=== PATIENT | male | born 1980 | race Caucasian/White ===

== ENCOUNTER 2017-02-04 21:21 | Emergency (ER) | payer OTHER ==
[~2017-02-04] VITALS: Ht 172.7 cm; Wt 125.2 kg
[2017-02-04 21:26] VITALS: TEMP 36.8; Ht 172.7 cm; Wt 125.2 kg
[2017-02-04] MEDS ORDERED: KETOROLAC TROMETHAMINE 30 MG/ML VIAL IV STA (22:35)
--- NOTE | 2017-02-04 22:35 | EMERGENCY ROOM VISIT NOTE ---
History Report prepared by Alexaibfatemeh: Nain Amado Under the Supervision of: Dr. Doug Rg D.O. First contact with patient: 22:29 Chief Complaint: CHEST PAIN Stated Complaint: CHEST PAINS Nursing Triage Summary: pt c/o left sided cp started around 1300 while he just finished eating History of Present Illness The patient is a 36 year old male who presents to the Emergency Room with complaints of intermittent left-sided chest pain that started around 1300 today. The pain is sharp in nature and usually lasts a few seconds. He has the pain currently. The pain was radiating towards the back before but is not now. He has never had pain like this before. He denies dizziness, lightheadedness, palpitations, or shortness of breath. He denies any recent injury or strenuous activity. Per family, the patient looks okay. He has a family history of heart disease. Source of History: patient, family Onset: 1300 today Position: chest (left) Quality: sharp Timing: intermittent Associated Symptoms: No SOB Review of Systems See HPI for pertinent positives and negatives. A total of ten systems were reviewed and were otherwise negative. Past Medical & Surgical Medical Problems: (1) Insomnia Family History FH: heart disease Social History Smoking Status: Current Every Day Smoker Marital Status: Housing Status: lives with family Allergies Coded Allergies: Gluten (Verified Allergy, Unknown, sick, 02/04/17) Penicillins (Verified Allergy, Unknown, unsure, 02/04/17) Physical Exam Vital Signs Date Time Temp Pulse Resp B/P Pulse Ox O2 Delivery O2 Flow Rate FiO2 02/04/17 22:58 83 02/04/17 22:56 95 Room Air 02/04/17 22:56 86 28 112/80 95 Room Air 02/04/17 21:26 36.8 101 18 139/89 97 Room Air Physical Exam GENERAL: Awake, alert, well-appearing, in no distress HENT: Normocephalic, atraumatic. Oropharynx unremarkable. EYES: Normal conjunctiva. Sclera non-icteric. NECK: Supple. No nuchal rigidity. FROM. No JVD. RESPIRATORY: Clear to auscultation. CARDIAC: Regular rate, normal rhythm. Extremities warm and well perfused. Pulses equal. ABDOMEN: Soft, non-distended. No tenderness to palpation. No rebound or guarding. No masses. RECTAL: Deferred. MUSCULOSKELETAL: Chest examination reveals no tenderness. The back is symmetrical on inspection without obvious abnormality. There is no CVA tenderness to palpation. No joint edema. LOWER EXTREMITIES: Calves are equal size bilaterally and non-tender. No edema. No discoloration. NEURO: Normal sensorium. No sensory or motor deficits noted. SKIN: No rash or jaundice noted. Medical Decision & Procedures ER Provider Diagnostic Interpretation: X ray results as stated below per my interpretation and radiologist interpretation. CHEST ONE VIEW PORTABLE CLINICAL HISTORY: Chest pain. COMPARISON STUDY: No previous studies for comparison. FINDINGS: Lung volumes are normal. Lungs are clear. There is no pneumothorax or pleural effusion. Cardiac size is normal. Mediastinal contours are normal. There is no evidence of pulmonary edema. IMPRESSION: No acute cardiopulmonary findings. Electronically signed by: Abelino Velasquez M.D. 02/04/2017 10:54 PM Dictated Date/Time: 02/04/2017 10:53 PM Laboratory Results 02/04/17 22:31 Red Blood Count 5.47, Mean Corpuscular Volume 88.1, Mean Corpuscular Hemoglobin 29.6, Mean Corpuscular Hemoglobin Concent 33.6, Mean Platelet Volume 10.4, Neutrophils (%) (Auto) 59.9, Lymphocytes (%) (Auto) 28.8, Monocytes (%) (Auto) 7.5, Eosinophils (%) (Auto) 2.9, Basophils (%) (Auto) 0.5, Neutrophils # (Auto) 7.81, Lymphocytes # (Auto) 3.75, Monocytes # (Auto) 0.97, Eosinophils # (Auto) 0.38, Basophils # (Auto) 0.06 02/04/17 22:31 Test 02/04/17 22:31 White Blood Count 13.02 K/uL (4.8-10.8) Red Blood Count 5.47 M/uL (4.7-6.1) Hemoglobin 16.2 g/dL (14.0-18.0) Hematocrit 48.2 % (42-52) Mean Corpuscular Volume 88.1 fL (80-100) Mean Corpuscular Hemoglobin 29.6 pg (25-34) Mean Corpuscular Hemoglobin Concent 33.6 g/dl (32-36) Platelet Count 329 K/uL (130-400) Mean Platelet Volume 10.4 fL (7.4-10.4) Neutrophils (%) (Auto) 59.9 % Lymphocytes (%) (Auto) 28.8 % Monocytes (%) (Auto) 7.5 % Eosinophils (%) (Auto) 2.9 % Basophils (%) (Auto) 0.5 % Neutrophils # (Auto) 7.81 K/uL (1.4-6.5) Lymphocytes # (Auto) 3.75 K/uL (1.2-3.4) Monocytes # (Auto) 0.97 K/uL (0.11-0.59) Eosinophils # (Auto) 0.38 K/uL (0-0.5) Basophils # (Auto) 0.06 K/uL (0-0.2) RDW Standard Deviation 42.4 fL (36.4-46.3) RDW Coefficient of Variation 13.1 % (11.5-14.5) Immature Granulocyte % (Auto) 0.4 % Immature Granulocyte # (Auto) 0.05 K/uL (0.00-0.02) Anion Gap 8.0 mmol/L (3-11) Est Creatinine Clear Calc Drug Dose 131.7 ml/min Estimated GFR () 112.9 Estimated GFR (Non- 97.4 BUN/Creatinine Ratio 13.5 (10-20) Calcium Level 10.0 mg/dl (8.5-10.1) Total Bilirubin 0.3 mg/dl (0.2-1) Direct Bilirubin < 0.1 mg/dl (0-0.2) Aspartate Amino Transf (AST/SGOT) 14 U/L (15-37) Alanine Aminotransferase (ALT/SGPT) 31 U/L (12-78) Alkaline Phosphatase 137 U/L (45-117) Troponin I < 0.015 ng/ml (0-0.045) Total Protein 7.3 gm/dl (6.4-8.2) Albumin 3.4 gm/dl (3.4-5.0) Laboratory results reviewed by me Medications Administered Medications (Trade) Dose Ordered Sig/Norah Route Start Time Stop Time Status Last Admin Dose Admin Ketorolac Tromethamine (Toradol Inj) 30 mg NOW STAT IV 02/04/17 22:35 02/04/17 22:37 DC 02/04/17 22:53 30 MG ECG Indication: chest pain Rate (beats per minute): 96 Rhythm: normal sinus Findings: no acute ischemic change (no obvious ST segment elevation or depression), left axis deviation, other (poor baseline) ED Course 2229: The patient was evaluated in room C2b. A complete history and physical exam was performed. 2234: Toradol 30 mg IV. 0: Reassessed the patient. Discussed the findings with him. He verbalized understanding. The patient is ready for discharge. Medical Decision Differential diagnosis includes chest wall pain, costochondritis, pleurisy, anxiety. Doubt acute coronary syndrome or HI. Repeat examination at 11:45 PM patient is resting in no distress no current chest pain. Patient has a very low heart score I do not suspect acute coronary syndrome. I discussed the workup with the patient patient's family at bedside. Impression Primary Impression: Chest wall pain Scribe Attestation The scribe's documentation has been prepared under my direction and personally reviewed by me in its entirety. I confirm that the note above accurately reflects all work, treatment, procedures, and medical decision making performed by me. Departure Information Dispostion Home / Self-Care Referrals Miley Ramírez M.D. (PCP) Forms HOME CARE DOCUMENTATION FORM, IMPORTANT VISIT INFORMATION Patient Instructions ED Chest Pain Costjosé miguel, My [facility]
[2017-02-04 22:53] LABS: BASO % 0.5 %; BASO ABS # 0.06 K/uL (0-0.2); COMPLETE YES; EOS % 2.9 %; HEMATOCRIT 48.2 % (42-52); IG% 0.4 %; LYMPH % 28.8 %; LYMPH ABS # 3.75 K/uL (1.2-3.4); MEAN CELL VOLUME 88.1 fL (80-100); MEAN CORPUSCULAR HEMOGLOBIN 29.6 pg (25-34); MEAN CORPUSCULAR HGB CONC 33.6 g/dl (32-36); MEAN PLATELET VOLUME 10.4 fL (7.4-10.4); MONO % 7.5 %; NEUT % 59.9 %; PLATELET COUNT 329 K/uL (130-400); RED BLOOD COUNT 5.47 M/uL (4.7-6.1); WHITE BLOOD COUNT 13.02 K/uL (4.8-10.8)
--- NOTE | 2017-02-04 22:55 | DIAGNOSTIC IMAGING REPORT ---
CHEST ONE VIEW PORTABLE CLINICAL HISTORY: Chest pain. COMPARISON STUDY: No previous studies for comparison. FINDINGS: Lung volumes are normal. Lungs are clear. There is no pneumothorax or pleural effusion. Cardiac size is normal. Mediastinal contours are normal. There is no evidence of pulmonary edema. IMPRESSION: No acute cardiopulmonary findings. Electronically signed by: Abelino Velasquez M.D. 02/04/2017 10:54 PM Dictated Date/Time: 02/04/2017 10:53 PM
[2017-02-04 22:56] VITALS: O2SAT 95
[2017-02-04 23:10] LABS: ALT/SGPT 31 U/L (12-78); BLOOD UREA NITROGEN 13 mg/dl (7-18); BUN/CREATININE RATIO 13.5 (10-20); CARBON DIOXIDE 26 mmol/L (21-32); CHLORIDE 106 mmol/L (98-107); CREATININE 0.98 mg/dl (0.60-1.40); GLUCOSE 100 mg/dl (70-99); POTASSIUM 3.6 mmol/L (3.5-5.1); SODIUM 140 mmol/L (136-145)
[2017-02-04 23:13] LABS: ALKALINE PHOSPHATASE 137 U/L (45-117); AST/SGOT 14 U/L (15-37)
[2017-02-04] MEDS ORDERED: FLUT0.15 NAE (23:50)
[2017-02-04] MEDS ORDERED: MONT1TAB5 PO (23:51)
[2017-02-04] MEDS ORDERED: ALBUAER INH (23:53)
[2017-02-04] MEDS ORDERED: PRLSR20 PO (23:54)
[2017-02-05 00:08] VITALS: BP 120/81; PULSE 85; O2SAT 95
== END 2017-02-05 00:09 | disposition home or self-care (01) ==
LOC: C.EDB 21:23 → C.EDC 02-05 00:09
DX: R07.89 Other chest pain (principal); F17.200 Nicotine dependence, unspecified, uncomplicated; Z88.0 Allergy status to penicillin; Z91.018 Allergy to other foods; Z82.49 Family history of ischemic heart disease and other diseases of the circulatory system